=== PATIENT | female | born 1960 | race African-American/Black ===

== ENCOUNTER 2019-06-14 12:54 | Emergency (ER) | payer MEDICAID ==
[~2019-06-14] VITALS: Ht 170.2 cm; Wt 83.0 kg
[2019-06-14 13:16] VITALS: BP 150/84
[2019-06-14] MEDS ORDERED: KETOROLAC 60MG/2ML VIAL IM ONE (15:30)
== END 2019-06-14 16:39 | disposition home or self-care (01) ==
LOC: ER 16:25
DX: J06.9 Acute upper respiratory infection, unspecified (principal); I10 Essential (primary) hypertension
CPT/HCPCS: 96372; 99283; J1885

== ENCOUNTER 2020-06-23 08:58 | Emergency (ER) | payer MEDICAID ==
[~2020-06-23] VITALS: Ht 167.6 cm; Wt 83.0 kg
[2020-06-23 09:10] VITALS: BP 115/81
[2020-06-23 10:13] LABS: CLARITY URINE CLEAR (CLEAR); COLOR URINE YELLOW (YELLOW); KETONES URINE NEGATIVE (NEGATIVE); LEUKOCYTE ESTERASE URINE NEGATIVE (NEGATIVE); NITRITE URINE NEGATIVE (NEGATIVE); OCCULT BLOOD URINE NEGATIVE (NEGATIVE); PH URINE 6.5 (4.5-8.0); PROTEIN URINE NEGATIVE (NEGATIVE); SPECIFIC GRAVITY URINE 1.021 (1.005-1.030)
[2020-06-23 11:53] LABS: BASOPHILS % 0.6 % (0.0-2.0); EOSINOPHILS % 2.7 % (0.0-5.0); HEMOGLOBIN. 14.8 g/dL (12.0-16.0); LYMPHOCYTES % 26.4 % (20.0-50.0); MEAN CORPUSCULAR HEMOGLOBIN 30.5 pg (28.0-32.0); MEAN CORPUSCULAR VOLUME 92.6 fL (81.0-99.0); MEAN PLATELET VOLUME 8.2 fl (7.4-10.4); MONOCYTES % 8.4 % (2.0-8.0); NEUTROPHILS % 61.9 % (40.0-76.0); PLATELET 253 x1000/uL (130-400); RED BLOOD CELL COUNT 4.86 mill/uL (4.2-5.4); RED CELL DISTRIBUTION WIDTH 13.7 % (11.6-14.6)
[2020-06-23 12:02] LABS: CHLORIDE 106 mEq/L (98-107)
[2020-06-23] MEDS ORDERED: METR-167 PO (12:59)
[2020-06-23] MEDS ORDERED: CLOT21CR4 VG (12:59)
[2020-06-23] MEDS ORDERED: MECL-159 PO (12:59)
[2020-06-28 15:47] LABS: NEISSERIA GONORRHOEAE NAA Negative (Negative)
== END 2020-06-23 13:12 | disposition home or self-care (01) ==
LOC: ER 08:58
DX: N76.0 Acute vaginitis (principal); R42 Dizziness and giddiness; I10 Essential (primary) hypertension
CPT/HCPCS: 36415; 80048; 81003; 85025; 87210; 87491; 87591; 99283

== ENCOUNTER 2022-02-02 17:00 | Emergency (ER) | payer MEDICAID, OTHER ==
[~2022-02-02] VITALS: Ht 172.7 cm; Wt 79.0 kg
[~2022-02-02 17:00] MED LIST: CLOT21CR4 VG; MECL-159 PO; METR-167 PO
[2022-02-02 17:11] VITALS: BP 145/90
[2022-02-02] MEDS ORDERED: ETHYL CHLORIDE CAN TOP ONE (18:45)
[2022-02-02] MEDS ORDERED: CLINDAMYCIN HCL 150MG CAPSULE PO SCH (19:00)
[2022-02-02] MEDS ORDERED: CLIN-194 MT (19:00)
[2022-02-02] MEDS ORDERED: IBUPROFEN 800MG TABLET PO ONE (19:00)
== END 2022-02-02 19:45 | disposition home or self-care (01) ==
LOC: ER 17:07
DX: L02.212 Cutaneous abscess of back [any part, except buttock and flank] (principal); I10 Essential (primary) hypertension
CPT/HCPCS: 10060; 99284; Z7610

== ENCOUNTER 2022-02-05 17:26 | Emergency (ER) | payer OTHER ==
[~2022-02-05] VITALS: Ht 165.1 cm; Wt 75.0 kg
[~2022-02-05 17:26] MED LIST changes: +CLIN-194 MT
[2022-02-05 19:50] VITALS: BP 135/52
== END 2022-02-05 19:53 | disposition home or self-care (01) ==
LOC: ER 17:26
DX: Z48.00 Encounter for change or removal of nonsurgical wound dressing (principal)
CPT/HCPCS: 99281

== ENCOUNTER 2022-02-14 10:56 | Emergency (ER) | payer OTHER ==
[~2022-02-14] VITALS: Ht 167.6 cm; Wt 82.0 kg
[2022-02-14 11:15] VITALS: BP 137/73
[2022-02-14] MEDS ORDERED: LOSA-419 PO (11:45)
[2022-02-14] MEDS ORDERED: MUPI1OIN4 TP (13:50)
[2022-02-14] MEDS ORDERED: LOSA1TAB34 MT (15:04)
== END 2022-02-14 14:06 | disposition home or self-care (01) ==
LOC: ER 10:56
DX: L02.212 Cutaneous abscess of back [any part, except buttock and flank] (principal); R22.2 Localized swelling, mass and lump, trunk; I10 Essential (primary) hypertension
CPT/HCPCS: 76604; 99284

== ENCOUNTER 2022-04-26 16:43 | Emergency (ER) | payer OTHER ==
[~2022-04-26] VITALS: Ht 167.6 cm; Wt 82.0 kg
[~2022-04-26 16:43] MED LIST changes: +LOSA-419 PO; +LOSA1TAB34 MT; +MUPI1OIN4 TP
[2022-04-26 17:27] VITALS: BP 154/67
[2022-04-26] MEDS ORDERED: LOSA1TAB34 PO (17:35)
== END 2022-04-26 17:45 | disposition home or self-care (01) ==
LOC: ER 16:43
DX: Z76.0 Encounter for issue of repeat prescription (principal); I10 Essential (primary) hypertension
CPT/HCPCS: 99281

== ENCOUNTER 2022-05-29 15:21 | Emergency (ER) | payer OTHER ==
[~2022-05-29] VITALS: Ht 167.6 cm; Wt 86.0 kg
[~2022-05-29 15:21] MED LIST changes: +LOSA1TAB34 PO
[2022-05-29 15:31] VITALS: BP 148/75
[2022-05-29] MEDS ORDERED: LOSA1TAB34 PO (16:39)
== END 2022-05-29 16:51 | disposition home or self-care (01) ==
LOC: ER 15:21
DX: I10 Essential (primary) hypertension (principal)
CPT/HCPCS: 99281

== ENCOUNTER 2024-06-09 09:18 | Emergency (ER) | payer BC, OTHER ==
[~2024-06-09] VITALS: Ht 167.6 cm; Wt 84.1 kg
[~2024-06-09 09:18] MED LIST changes: -MECL-159 PO; +MECL-299 PO
[2024-06-09 09:33] VITALS: O2SAT 98
[2024-06-09 12:20] LABS: D-DIMER 0.36 mg/L FEU (<0.50); PROTHROMBIN TIME 10.9 sec (9.6-11.0)
[2024-06-09 12:21] LABS: BASOPHILS % 0.4 % (0.0-2.0); EOSINOPHILS % 2.5 % (0.0-5.0); HEMATOCRIT. 44.9 % (36.0-48.0); HEMOGLOBIN. 14.7 g/dL (12.0-16.0); LYMPHOCYTES % 29.9 % (20.0-50.0); MEAN CORPUSCULAR HEMOGLOBIN 30.9 pg (28.0-32.0); MEAN CORPUSCULAR HGB CONC 32.7 g/dL (31.0-37.0); MEAN CORPUSCULAR VOLUME 94.6 fL (81.0-99.0); MEAN PLATELET VOLUME 8.9 fl (7.4-10.4); MONOCYTES % 7.7 % (2.0-8.0); NEUTROPHILS % 59.5 % (40.0-76.0); PLATELET 268 x1000/uL (130-400); RED BLOOD CELL COUNT 4.75 mill/uL (4.2-5.4); RED CELL DISTRIBUTION WIDTH 13.7 % (11.6-14.6); WHITE BLOOD COUNT 7.6 x1000/uL (4.5-11.0)
[2024-06-09 12:35] LABS: CHLORIDE 106 mEq/L (98-107); SODIUM 142 mEq/L (136-145)
[2024-06-09 12:36] LABS: CALCIUM 9.5 mg/dL (8.7-10.4); CARBON DIOXIDE 28 mEq/L (21-32)
[2024-06-09 12:41] LABS: CREATININE 0.7 mg/dL (0.6-1.0); GLUCOSE 96 mg/dL (70-105); UREA NITROGEN BLOOD 10 mg/dL (9-23)
[2024-06-09 12:43] LABS: ALANINE AMINOTRANSFERASE 13 IU/L (10-49); ASPARTATE AMINOTRANSFERASE 13 IU/L (<34)
[2024-06-09 12:44] LABS: BILIRUBIN DIRECT 0.1 mg/dL (<=3.0); BILIRUBIN TOTAL 0.4 mg/dL (0.1-1.0)
[2024-06-09 12:45] LABS: TROPONIN I HIGH SENSITIVITY < 4 ng/L (3.0-34)
[2024-06-09 13:59] VITALS: BP 148/82; PULSE 55; RESP 18; TEMP 36.9; O2SAT 98
== END 2024-06-09 14:00 | disposition home or self-care (01) ==
LOC: ER 09:18
DX: R07.81 Pleurodynia (principal); R07.89 Other chest pain; I10 Essential (primary) hypertension; Z79.899 Other long term (current) drug therapy
CPT/HCPCS: 36415; 71045; 80048; 80076; 84484; 85025; 85379; 93005; 99285

== ENCOUNTER 2024-06-14 14:31 | Emergency (ER) | payer BC ==
[~2024-06-14] VITALS: Ht 167.6 cm; Wt 79.3 kg
[2024-06-14 14:37] VITALS: TEMP 36.7; O2SAT 97
[2024-06-14 18:47] VITALS: BP 138/88; PULSE 55; RESP 14; O2SAT 99
[2024-06-14] MEDS ORDERED: DOXY100T28 MT (19:02)
[2024-06-14] MEDS ORDERED: NAPR-681 MT (19:02)
[2024-06-14] MEDS ORDERED: MUPI15CR11 TP (19:02)
== END 2024-06-14 19:18 | disposition home or self-care (01) ==
LOC: ER 14:31
DX: S31.159A Open bite of abdominal wall, unspecified quadrant without penetration into peritoneal cavity, initial encounter (principal); L03.311 Cellulitis of abdominal wall; I10 Essential (primary) hypertension; Z79.899 Other long term (current) drug therapy; W57.XXXA Bitten or stung by nonvenomous insect and other nonvenomous arthropods, initial encounter; Y93.89 Activity, other specified; Y92.89 Other specified places as the place of occurrence of the external cause; Y99.8 Other external cause status
CPT/HCPCS: 99283

== ENCOUNTER 2024-07-21 17:01 | Emergency (ER) | payer BC ==
[~2024-07-21] VITALS: Ht 167.6 cm; Wt 83.0 kg
[~2024-07-21 17:01] MED LIST changes: +DOXY100T28 MT; +MUPI15CR11 TP; +NAPR-681 MT
[2024-07-21 17:08] VITALS: BP 132/76; TEMP 36.9; O2SAT 96
[2024-07-21 17:23] VITALS: PULSE 72; RESP 18; O2SAT 100
== END 2024-07-22 00:36 | disposition home or self-care (01) ==
LOC: ER 17:01
DX: R21 Rash and other nonspecific skin eruption (principal); I10 Essential (primary) hypertension; Z79.899 Other long term (current) drug therapy
CPT/HCPCS: 99281

== ENCOUNTER 2024-08-02 15:31 | Emergency (ER) | payer BC ==
[~2024-08-02] VITALS: Ht 167.6 cm; Wt 81.6 kg
[2024-08-02 16:02] VITALS: O2SAT 98
[2024-08-02] MEDS ORDERED: NAPR-681 PO (18:52)
[2024-08-02] MEDS ORDERED: SULF1TAB48 MT (18:52)
[2024-08-02] MEDS ORDERED: CEPH500C2 MT (18:52)
[2024-08-02 19:01] VITALS: BP 145/75; PULSE 61; RESP 18; TEMP 36.7; O2SAT 96
== END 2024-08-02 19:02 | disposition home or self-care (01) ==
LOC: ER 15:31
DX: L08.9 Local infection of the skin and subcutaneous tissue, unspecified (principal); L72.3 Sebaceous cyst; I10 Essential (primary) hypertension; Z79.899 Other long term (current) drug therapy
CPT/HCPCS: 99283